=== PATIENT | male | born 1955 | race Two or more races ===

== ENCOUNTER 2021-08-27 18:11 | Inpatient (IN) | payer BC, OTHER ==
[~2021-08-27] VITALS: Ht 175.3 cm; Wt 96.7 kg
[2021-08-27] MEDS ORDERED: SODIUM CHLORIDE 0.9% 1,000 ML IV ONE (19:30)
[2021-08-27 19:55] LABS: Basophils # (auto) 0.1 10 ^3/uL (0-0.2); Basophils % (auto) 1.1 % (0.0-2.0); Eosinophils # (auto) 0.2 10 ^3/uL (0-0.8); Eosinophils % (auto) 2.3 % (0.0-7.0); Hematocrit 38.1 % (41.0-53.0); Hemoglobin 13.4 g/dL (13.5-17.5); Lymphocytes # (auto) 1.5 10 ^3/uL (0.4-5.4); Mean Corpuscular Hemoglobin 32.5 pg (28.0-32.0); Mean Corpuscular Volume 92.7 fL (80.0-100.0); Monocytes # (auto) 0.6 10 ^3/uL (0-1.3); Monocytes % (auto) 6.6 % (0.0-12.0); Neutrophils # (auto) 6.4 10 ^3/uL (1.6-8.6); Nucleated Red Blood Cells % 0.1 %; Red Blood Cells 4.11 10^6/uL (4.5-5.90); Red Cell Distribution Width 14.2 % (11.8-14.3); White Blood Cell 8.8 10^3/uL (4.4-10.8)
[2021-08-27] MEDS ORDERED: InsuLIN REG 1unit/0.01ml Soln (100units/ml) IV ONE (20:15)
[2021-08-27 20:36] LABS: Anion Gap 16 (5-15); Blood Urea Nitrogen 46 mg/dL (7-18); Carbon Dioxide 24 mmol/L (21-32); Chloride 92 mmol/L (98-107); Potassium 3.6 mmol/L (3.5-5.1); Sodium 132 mmol/L (136-145)
[2021-08-27 20:37] LABS: Alanine Aminotransferase 33 U/L (16-61); Albumin 2.9 g/dL (3.4-5.0); Alkaline Phosphatase 12 U/L (45-117); Aspartate Aminotransferase 21 U/L (15-37); BUN/Creatinine Ratio 11.6; Bilirubin, Total 0.7 mg/dL (0.2-1.0); Calcium 8.2 mg/dL (8.5-10.1); GFR African American 20 mL/min; GFR Non-African American 16 mL/min
[2021-08-27 20:38] LABS: Magnesium 1.9 mg/dL (1.6-2.6)
[2021-08-27 20:39] LABS: Glucose 753 mg/dL (74-106)
[2021-08-27 22:58] LABS: Urine Bacteria NONE SEEN /hpf (None Seen); Urine Blood 1+ /uL (Negative); Urine Specific Gravity 1.017 (1.001-1.035); Urine WBC <1 /hpf (0 - 3)
[2021-08-28] MEDS ORDERED: MORPHINE SULFATE INJECTION 2 MG/ML SYRG IV PRN (02:45)
[2021-08-28] MEDS ORDERED: NITROGLYCERIN 0.4 MG SL TAB SL PRN (02:45)
[2021-08-28] MEDS ORDERED: InsuLIN R (HUMAN) 100 UNITS in SODIUM CHL 0.9% 99 ML IV SCH (02:45)
[2021-08-28] MEDS ORDERED: DEXTROSE (50%) 50ML SYRG IV PRN ×2 (02:45→15:15)
[2021-08-28] MEDS ORDERED: INSULIN LANTUS (GLARGINE) 1 /0.01ml (100units/ml) SC ONE ×2 (02:45→15:15)
[2021-08-28] MEDS ORDERED: ONDANSETRON HCL 4 MG/2 ML VIAL IV PRN (02:45)
[2021-08-28] MEDS ORDERED: InsuLIN REG 1unit/0.01ml Soln (100units/ml) ONE (03:32)
[2021-08-28] MEDS: ACCU-CHEK COMFORT CURVE STRIP VI SCH ×10 (03:32→20:25)
[2021-08-28] MEDS: SODIUM CHLORIDE 0.9% 1,000 ML IV SCH ×2 (03:32→05:03)
[2021-08-28 06:10] LABS: Calcium 8.2 mg/dL (8.5-10.1)
[2021-08-28 06:15] LABS: BUN/Creatinine Ratio 12.2
[2021-08-28] MEDS ORDERED: SODIUM CHLORIDE 0.9% 1,000 ML IV SCH (06:45)
[2021-08-28 09:22] LABS: BUN/Creatinine Ratio 12.8; Calcium 8.5 mg/dL (8.5-10.1); Potassium 3.4 mmol/L (3.5-5.1)
[2021-08-28] MEDS ORDERED: PANTOPRAZOLE 40 MG/10 ML VIAL INJ IV SCH (10:00)
[2021-08-28] MEDS: LOSARTAN POTASSIUM 50 MG TAB PO SCH (10:00)
[2021-08-28] MEDS: amLODIPine BESYLATE 5 MG TAB PO SCH (10:00)
[2021-08-28] MEDS ORDERED: ERGO1CAP12 PO (10:14)
[2021-08-28] MEDS ORDERED: LOSA-39 PO (10:14)
[2021-08-28] MEDS ORDERED: GLUC1MIS2 TOP (10:14)
[2021-08-28] MEDS ORDERED: [UNRECOGNIZED DRUG - CODE] PO (10:14)
[2021-08-28] MEDS ORDERED: INSU1.2I SC (10:14)
[2021-08-28] MEDS ORDERED: AMLO-496 PO (10:14)
[2021-08-28] MEDS ORDERED: ROSU40TA PO (15:33)
[2021-08-28] MEDS ORDERED: INSU300I SC (15:33)
[2021-08-28] MEDS ORDERED: LOSA100T25 PO (15:33)
[2021-08-28] MEDS ORDERED: CARV25TA55 PO (15:33)
[2021-08-28 15:39] LABS: BUN/Creatinine Ratio 12.6; Calcium 8.3 mg/dL (8.5-10.1); Potassium 3.1 mmol/L (3.5-5.1)
[2021-08-28] MEDS: InsuLIN REG 1unit/0.01ml Soln (100units/ml) SC SCH ×2 (16:00→20:26)
[2021-08-28] MEDS ORDERED: POTASSIUM CHL 20 Meq TABLET PO ONE (16:15)
[2021-08-28 21:32] LABS: BUN/Creatinine Ratio 12.8; Calcium 7.7 mg/dL (8.5-10.1); Potassium 3.3 mmol/L (3.5-5.1)
[2021-08-28] MEDS ORDERED: INSULIN LANTUS (GLARGINE) 1 /0.01ml (100units/ml) SC SCH (22:00)
[2021-08-29] MEDS: ACCU-CHEK COMFORT CURVE STRIP VI SCH ×4 (04:43→12:22)
[2021-08-29] MEDS: InsuLIN REG 1unit/0.01ml Soln (100units/ml) SC SCH ×4 (04:45→12:38)
[2021-08-29 05:00] VITALS: BP 157/88
[2021-08-29] MEDS ORDERED: B-CO-5 OR (07:22)
[2021-08-29] MEDS ORDERED: FURO40TA4 PO (07:22)
[2021-08-29] MEDS: amLODIPine BESYLATE 5 MG TAB PO SCH (08:25)
[2021-08-29] MEDS: LOSARTAN POTASSIUM 50 MG TAB PO SCH (08:25)
[2021-08-29 09:00] VITALS: BP 152/76
[2021-08-29] MEDS ORDERED: INSULIN LANTUS (GLARGINE) 1 /0.01ml (100units/ml) SC SCH (10:00)
[2021-08-29 10:18] LABS: Basophils # (auto) 0.1 10 ^3/uL (0-0.2); Basophils % (auto) 1.4 % (0.0-2.0); Eosinophils # (auto) 0.4 10 ^3/uL (0-0.8); Hemoglobin 13.1 g/dL (13.5-17.5); Lymphocytes # (auto) 2.7 10 ^3/uL (0.4-5.4); Lymphocytes % (auto) 29.2 % (10.0-50.0); Mean Corpuscular Hemoglobin 32.2 pg (28.0-32.0); Mean Corpuscular Hgb Conc. 34.6 g/dL (32.0-36.0); Monocytes # (auto) 0.8 10 ^3/uL (0-1.3); Monocytes % (auto) 8.2 % (0.0-12.0); Neutrophils # (auto) 5.3 10 ^3/uL (1.6-8.6); Neutrophils % (auto) 57.2 % (37.0-80.0); Red Blood Cells 4.08 10^6/uL (4.5-5.90); Red Cell Distribution Width 14.3 % (11.8-14.3); White Blood Cell 9.2 10^3/uL (4.4-10.8)
[2021-08-29 10:19] LABS: Blood Urea Nitrogen 46 mg/dL (7-18); Calcium 7.9 mg/dL (8.5-10.1); Chloride 106 mmol/L (98-107); Magnesium 1.8 mg/dL (1.6-2.6); Potassium 3.1 mmol/L (3.5-5.1); Sodium 139 mmol/L (136-145)
[2021-08-29 10:32] LABS: Alanine Aminotransferase 41 U/L (16-61); Albumin 2.6 g/dL (3.4-5.0); Alkaline Phosphatase 91 U/L (45-117); Anion Gap 9 (5-15); Aspartate Aminotransferase 43 U/L (15-37); BUN/Creatinine Ratio 13.2; Bilirubin, Total 0.6 mg/dL (0.2-1.0); Carbon Dioxide 24 mmol/L (21-32); Cholesterol 247 mg/dL (< 200); GFR African American 23 mL/min; GFR Non-African American 19 mL/min; Glucose 231 mg/dL (74-106); HDL Cholesterol 27 mg/dL (40-59); Total Protein 6.3 g/dL (6.4-8.2); Triglycerides 1304 mg/dL (< 150)
[2021-08-29 13:00] VITALS: BP 157/74
[2021-08-29] MEDS ORDERED: POTASSIUM EFFERVESENT TAB 25 MEQ PO ONE (14:00)
[2021-08-29 17:00] VITALS: BP 157/74
== END 2021-08-29 17:36 | disposition home or self-care (01) | DRG 637 ==
LOC: EDUNIT# 18:11 → EDBD 18:11 → ER 18:17 → TELE 08-28 02:42 → TELE-CENTR 08-29 03:55
PROVIDERS: ADMIT Nurse Practitioner; ATTEND Internal Medicine
DX: E11.10 Type 2 diabetes mellitus with ketoacidosis without coma (principal); N18.6 End stage renal disease; I12.0 Hypertensive chronic kidney disease with stage 5 chronic kidney disease or end stage renal disease; E86.0 Dehydration; E66.9 Obesity, unspecified; E11.22 Type 2 diabetes mellitus with diabetic chronic kidney disease; E11.65 Type 2 diabetes mellitus with hyperglycemia; E55.9 Vitamin D deficiency, unspecified; E78.5 Hyperlipidemia, unspecified; E87.6 Hypokalemia; Z99.2 Dependence on renal dialysis; Z68.31 Body mass index [BMI] 31.0-31.9, adult; Z88.6 Allergy status to analgesic agent; Z88.8 Allergy status to other drugs, medicaments and biological substances
CPT/HCPCS: 36415; 36600; 71045; 80048; 80053; 80061; 81001; 82010; 82306; 82805; 82962; 83036; 83735; 83880; 84443; 85025; 87426; 93005; 96361; 96374; C9113; G0378; J1815